=== PATIENT | female | born 1985 | race Caucasian/White ===

== ENCOUNTER 2019-10-12 01:55 | Inpatient (IN) | payer BC, OTHER, SELFPAY ==
[2019-10-12] VITALS (92 sets, daily range): BP systolic 87–121; BP diastolic 38–88; PULSE 65–179; RESP 16; TEMP 36.3–37; O2SAT 87–100; BMI 28.5
[2019-10-12] MEDS: LACTATED RINGERS 1,000 ML 125 ML IV CONT ×2 (02:48→03:36)
[2019-10-12 02:52] LABS: Basophils Absolute Auto 0.1 K/mm3 (0.0-0.1); Basophils Percent Auto 0.5 % (0.2-1.2); Eosinophils Absolute Auto 0.1 K/mm3 (0-0.3); Eosinophils Percent Auto 0.9 % (0-4.4); Hematocrit 32.7 % (37.0-47.0); Hemoglobin 11.3 g/dL (12.0-15.0); Immature Granulocyte Absolute 0.06 K/mm3 (0.00-0.031); Immature Granulocyte Percent A 0.6 % (0-0.5); Lymphocytes Absolute Auto 1.98 K/mm3 (0.9-3.2); Lymphocytes Percent Auto 19.2 % (18.3-44.2); Mean Corpuscular HGB Conc 34.6 g/dl (32-36); Mean Corpuscular Volume 92.6 fl (80-100); Mean Platelet Volume 9.8 fl (7.4-10.4); Monocytes Absolute Auto 0.7 K/mm3 (0.1-0.6); Monocytes Percent Auto 7.2 % (2.6-8.5); Neutrophils Absolute Auto 7.4 K/mm3 (1.3-6.7); Neutrophils Percent Auto 71.6 % (45.5-73.1); Platelet Count Result 255 k/mm3 (150-375); Red Blood Count 3.53 M/mm3 (4.2-5.4); Red Cell Distribution Width 12.5 % (11.5-14.5); White Blood Count 10.3 K/mm3 (4.5-10.0)
[2019-10-12] MEDS: AMPICILLIN 2 GM/NS 100 ML 2 GM/100 ML BAG IVPB (02:56)
--- NOTE | 2019-10-12 03:22 | P.PNAN_ITS ---
Anes - Eval Pre Procedure Procedure: labor epidural Date/Time: 10/12/19 03:22 Surgeon: Jones Preop Diagnosis: Pain in labor Pre Op Diagnosis: LEAKING Patient Data Age: 33 Gender: F Height: 1.63 m Weight: 75.5 kg Last Vital Signs Pulse 75 10/12/19 03:20 BP 107/63 10/12/19 03:20 Pulse Ox 100 10/12/19 03:21 Allergies Allergy/AdvReac Type Severity Reaction Status Date / Time morphine AdvReac Mild vomiting Verified 09/01/19 10:59 Home Medications Medication Instructions Recorded Confirmed Type PNV cmb#95-ferrous fumarate-FA 1 tablet PO DAILY 09/01/19 09/01/19 History [] diphenhydramine HCl [Benadryl] 25 mg PO HS PRN 09/01/19 09/01/19 History Laboratory Tests 10/12/19 10/12/19 02:42 02:42 WBC 10.3 K/mm3 H K/mm3 (4.5-10.0) RBC 3.53 M/mm3 L M/mm3 (4.2-5.4) Hgb 11.3 g/dL L g/dL (12.0-15.0) Hct 32.7 % L % (37.0-47.0) MCV 92.6 fl fl (80-100) MCH 32.0 pg pg (26-34) MCHC 34.6 g/dl g/dl (32-36) RDW 12.5 % % (11.5-14.5) Plt Count 255 k/mm3 k/mm3 (150-375) MPV 9.8 fl fl (7.4-10.4) Immature Gran % (Auto) 0.6 % H % (0-0.5) Neut % (Auto) 71.6 % % (45.5-73.1) Lymph % (Auto) 19.2 % % (18.3-44.2) [place] % (Auto) 7.2 % % (2.6-8.5) Eos % (Auto) 0.9 % % (0-4.4) Baso % (Auto) 0.5 % % (0.2-1.2) Lymph # (Auto) 1.98 K/mm3 K/mm3 (0.9-3.2) [place] # (Auto) 0.7 K/mm3 H K/mm3 (0.1-0.6) Eos # (Auto) 0.1 K/mm3 K/mm3 (0-0.3) Baso # (Auto) 0.1 K/mm3 K/mm3 (0.0-0.1) Abs Immat Gran (auto) 0.06 K/mm3 H K/mm3 (0.00-0.031) Absolute Neuts (auto) 7.4 K/mm3 H K/mm3 (1.3-6.7) Absolute Nucleated RBC 0.0 K/mm3 K/mm3 (0.0-0.012) Nucleated RBC % 0.0 % % (0.0-0.2) RPR Pending Patient hx anesthesia problems: none Family hx anesthesia problems: none [facility] Past Medical History Medical History (Updated 10/12/19 @ 03:23 by Anastacio Coates, ) Fixation hardware in spine cervical C4-6 and thoracic T6-12 Exam Day of Procedure 10/12/19 03:22 Patient weight: overweight
--- NOTE | 2019-10-12 03:38 | LDADM ---
This patient, Chauncey Desai, was admitted to Labor/Delivery/Recovery 108 on 10/12/19 at 01:55. Plans for labor, pain management and were discussed with patient. Patient/family oriented to hospital policies and general routines including ID bracelet, bed and alarms, visiting hours, pain management, procedures, bathroom and other care routines, personal items, smoking policy, room service/diet and guest tray routines, infant security routines, and visiting hours. Patient/Family are encouraged to report perceived risks to care and to ask questions if they do not understand what they are told or what they should do. See OBIX for further documentation.
[2019-10-12] MEDS: AMPICILLIN 1 GM/NS 50 ML 1 GM/50 ML BAG IVPB (06:31)
--- NOTE | 2019-10-12 06:37 | PM.IMHP ---
H&P: HPI History of Present Illness Chief complaint: LEAKING Narrative: Chauncey Desai is a 33 year old female 012 whose last menstrual period was 01/26/2019 whose EDC is 11/09/2019 presents at 36 weeks gestation with leaking fluid. Her has been uncomplicated her group B strep screen is pending. Antibiotics have been began Review of Systems Review of Systems: All systems reviewed & are unremarkable except as noted in HPI and below PMFSH Past Medical History Medical History Fixation hardware in spine cervical C4-6 and thoracic T6-12 Social History Social History Smoking status: Never smoker Substance use: never Gender identity (if verbalized by the patient): Female Spiritual care concerns: No Meds Home Medications and Allergies Home Medications Medication Instructions Recorded Confirmed Type PNV cmb#95-ferrous fumarate-FA 1 tablet PO DAILY 09/01/19 10/12/19 History [] diphenhydramine HCl [Benadryl] 25 mg PO HS PRN 09/01/19 10/12/19 History Allergies Allergy/AdvReac Type Severity Reaction Status Date / Time morphine AdvReac Mild vomiting Verified 09/01/19 10:59 Vital Signs Vital Signs - 24 hr 10/12/19 02:30 10/12/19 03:06 10/12/19 03:08 Temperature Pulse Rate 85 78 87 Blood Pressure 99/70 L 109/60 107/71 Pulse Oximetry 99 10/12/19 03:10 10/12/19 03:11 10/12/19 03:12 Temperature Pulse Rate 82 80 Blood Pressure 100/76 105/70 Pulse Oximetry 100 10/12/19 03:15 10/12/19 03:16 10/12/19 03:17 Temperature Pulse Rate 72 71 Blood Pressure 111/68 107/66 Pulse Oximetry 100 10/12/19 03:18 10/12/19 03:20 10/12/19 03:21 Temperature Pulse Rate 78 75 Blood Pressure 104/64 107/63 Pulse Oximetry 100 10/12/19 03:22 10/12/19 03:25 10/12/19 03:26 Temperature Pulse Rate 69 72 Blood Pressure 104/62 104/60 Pulse Oximetry 100 10/12/19 03:27 10/12/19 03:30 10/12/19 03:31 Temperature Pulse Rate 68 72 Blood Pressure 106/61 111/56 L Pulse Oximetry 100 10/12/19 03:32 10/12/19 03:35 10/12/19 03:36 Temperature Pulse Rate 73 Blood Pressure 106/67 87/64 L Pulse Oximetry 100 10/12/19 03:37 10/12/19 03:40 10/12/19 03:41 Temperature Pulse Rate 179 H 70 Blood Pressure 91/38 L 93/48 L Pulse Oximetry 100 10/12/19 03:42 10/12/19 03:45 10/12/19 03:46 Temperature Pulse Rate 70 66 Blood Pressure 90/50 L 99/52 L Pulse Oximetry 100 10/12/19 03:47 10/12/19 03:50 10/12/19 03:51 Temperature Pulse Rate 74 156 H Blood Pressure 106/67 101/62 Pulse Oximetry 100 10/12/19 03:52 10/12/19 03:55 10/12/19 03:56 Temperature Pulse Rate 71 65 Blood Pressure 100/58 L 104/60 Pulse Oximetry 100 10/12/19 03:57 10/12/19 04:00 10/12/19 04:01 Temperature Pulse Rate 65 69 Blood Pressure 100/59 L 102/63 Pulse Oximetry 100 10/12/19 04:05 10/12/19 04:06 10/12/19 04:11 Temperature 97.4 F L Pulse Rate Blood Pressure Pulse Oximetry 100 100 10/12/19 04:15 10/12/19 04:16 10/12/19 04:21 Temperature Pulse Rate 72 Blood Pressure 99/66 L Pulse Oximetry 100 100 10/12/19 04:26 10/12/19 04:30 10/12/19 04:31 Temperature Pulse Rate 70 Blood Pressure 103/66 Pulse Oximetry 99 100 10/12/19 04:36 10/12/19 04:41 10/12/19 04:45 Temperature Pulse Rate 75 Blood Pressure 104/69 Pulse Oximetry 100 100 10/12/19 04:46 10/12/19 04:51 10/12/19 04:56 Temperature Pulse Rate Blood Pressure Pulse Oximetry 100 100 100 10/12/19 05:00 10/12/19 05:01 10/12/19 05:06 Temperature Pulse Rate 79 Blood Pressure 97/64 L Pulse Oximetry 100 100 10/12/19 05:11 10/12/19 05:16 10/12/19 05:21 Temperature Pulse Rate 74 Blood Pressure 87/48 L Pulse Oximetry 100 100 100 10/12/19 05:26 10/12/19
--- NOTE | 2019-10-12 07:18 | PM.OBPRVD ---
OB - Delivery Note Procedure Delivery date: 10/12/19 Intrapartal events: None Induction method: none Delivery monitor: external FHT Route of delivery: Episiotomy description: None Laceration description: None Specimen: No Estimated blood loss (mL): 57 Anesthesia type: Epidural Disposition: floor Baby Date of : 10/12/19 Time of : 07:09 Weeks of gestation at delivery: 36 gender: Male presentation: vertex position: Right Occiput Anterior Placenta delivery description: Spontaneous cord vessel description: 3 Vessels score one minute: 9 score five minutes: 9 Narrative: amp x 2
[2019-10-12 09:00] LABS: Rapid Plasma Reagin Non-Reactive (NonReactive)
[2019-10-12] MEDS: WITCH HAZEL 40 PADS 1 PAD TOPICAL (09:51)
[2019-10-12] MEDS: BENZOCAINE 20% AER SPR (*SP) 56 GM CAN 1 SPRAY TOPICAL (09:51)
--- NOTE | 2019-10-12 11:38 | PC.NURSE ---
Patient transferred to post room #282 via wheelchair. Support person present. Oriented to unit, room, information board, rooming in, admission packet and security measures. Patient verbalizes understanding.
--- NOTE | 2019-10-12 11:40 | PC.NURSE ---
Consult with pt., mother reports she did not breastfeed first children (twins delivered at 29 weeks) Reviewed feeding cues, frequencies, duration of feedings, feeding elimination flow sheet, and signs of adequate intake. Demonstrated stimulation techniques to wake infant for feeding. Assisted with to breast. Reviewed positioning/alignment in cross cradle, holding breast in U hold and guided asymmetrical latch on. Discussed rational for each. With in a few attempts, infant was able to latch correctly. nursed eagerly, with steady draws and frequent swallowing noted. Reviewed signs of a correct latch, effective nursing and suck swallow ratio. Infant was able to maintain latch without discomfort to mother. Nipple care reviewed. Suggested to hold breast during entire feeding to assist with maintaining deep latch, and to stimulate to keep awake and interested in feeding. Instructed mother to call out for RN assistance if she is unable to latch infant for feeding or she has discomfort with nursing. Instructed feeding should be initiated three hours from start of last feeding or if feeding cues are noted before. Mother voiced understanding of information shared.
[2019-10-12] MEDS: IBUPROFEN 600 MG TABLET PO ×3 (11:54→23:21)
--- NOTE | 2019-10-12 14:15 | PC.NURSE ---
Mother called out for assist with latching. Demonstrated stimulation techniques to wake for feeding. Assisted with infant to breast. Reviewed positioning/alignment in cross cradle, holding breast in U hold and guided asymmetrical latch on. Discussed rational for each. With in a few attempts, infant was able to latch correctly. nursed eagerly, with steady draws and frequent swallowing noted. Reviewed signs of a correct latch, effective nursing and suck swallow ratio. Infant was able to maintain latch without discomfort to mother. Nipple care reviewed. Suggested to hold breast during entire feeding to assist with maintaining deep latch, and to stimulate to keep awake and interested in feeding. Instructed mother to call out for RN assistance if she is unable to latch infant for feeding or she has discomfort with nursing. Instructed feeding should be initiated three hours from start of last feeding or if feeding cues are noted before. Mother voiced understanding of information shared.
[2019-10-13 05:25] LABS: Hematocrit 33.2 % (37.0-47.0)
[2019-10-13] MEDS: IBUPROFEN 600 MG TABLET PO ×3 (05:25→19:33)
--- NOTE | 2019-10-13 07:53 | PM.OBPNVD ---
OB - PN: Subj Subjective Date/time seen: 10/13/19 07:53 Patient comments: no complaints, pain well controlled and tolerating diet feeding status: exclusively breast feeding Narrative: patient doing well this AM. No complaints. Pain is well controlled. She reports minimal bleeding. She is ambulating and voiding without difficulty. She is tolerating PO. She denies N/V, fever, chills. OB - PN: Obj Data Labs CBC & Chem 7: 10/13/19 05:14 Labs: Laboratory Results - last 24 hr 10/12/19 10/12/19 10/13/19 02:42 02:42 05:14 Hgb Hct RPR Non-reactive Blood Type O Negative Antibody Screen Positive Antibody Identification Passive Due to RH Imm Glob Passive Due to RH Imm Glob Antigen Identification Cancelled Cancelled ANDREA, IgG Interpret Not Performed Not Performed ANDREA, Poly Interpret Negative Negative ANDREA, Complement Interp Not Performed Not Performed Screen Negative Baby's Blood Type A pos Baby's ANDREA Negative Doses of RhIg Required 1 10/13/19 05:14 Hgb 11.0 L Hct 33.2 L RPR Blood Type Antibody Screen Antibody Identification Antigen Identification ANDREA, IgG Interpret ANDREA, Poly Interpret ANDREA, Complement Interp Screen Baby's Blood Type Baby's ANDREA Doses of RhIg Required OB - PN A/P Plan day: 1 Plan: routine care Comments: patient doing well H/H stable plan for infant circumcision today continue routine care Time Spent With Patient Time: Total time spent is greater than 50% in coordination of care (as documented) at patient's floor/unit and/or counseling patient: Time with patient: less than 15 minutes Review of Systems Review of Systems: All systems reviewed & are unremarkable except as noted in HPI and below Exam Const: General: comfortable and no acute distress Resp: Effort & Inspection: normal respiratory effort Cardio: Rate: regular rate GI: GI Palp: Yes Soft to palpation and No Tenderness to palpation present (GI) Auscultation: normal bowel sounds Other: fundus firm and below umbilicus. Psych: Affect: normal affect
--- NOTE | 2019-10-13 08:30 | WPDANLDPN2 ---
Anes-Prog Note L&D Date/Time: 10/13/19 08:30 Comfortable throughout: labor and delivery Neuraxial method: epidural Epidural/Spinal procedure site: clean & non-tender Neuro status: Neuro function grossly intact. Cardiovascular status: normal Respiratory status: normal Airway patency: baseline Mental status: baseline Post-Op hydration status: normal Vital Signs: Last Vital Signs Temp 36.7 C 10/12/19 19:30 Pulse 88 10/12/19 19:30 Resp 16 10/12/19 19:30 BP 115/73 10/12/19 19:30 Pulse Ox 98 10/12/19 10:40 Patient feedback: Patient satisfied with anesthetic care.
[2019-10-13 08:50] VITALS: BP 104/70; PULSE 72; RESP 18; TEMP 36.5; O2SAT 99
[2019-10-13] MEDS: MULTIVIT/MIN/PREN/FOL AC/IRON TABLET 1 TAB PO (08:56)
[2019-10-13] MEDS: RHO(D) IMMUNE GLOBULIN 300 MCG SYRINGE IM (09:56)
--- NOTE | 2019-10-13 12:50 | PC.NURSE ---
Observed mother is able to independently latch with appropriate positioning/alignment. She denies any nipple discomfort, is feeding as required and waking infant to feed if needed. nursed eagerly, with steady draws and frequent swallowing noted. Reviewed signs of a correct latch, effective nursing and suck swallow ratio. was able to maintain latch without discomfort to mother. Reviewed output and jaundice level. Mother will initiate 15ml supplementation after each .
[2019-10-13 19:35] VITALS: BP 113/73; PULSE 73; RESP 16; TEMP 36.6
[2019-10-14] MEDS: IBUPROFEN 600 MG TABLET PO (05:14)
--- NOTE | 2019-10-14 07:53 | PM.OBDSVD ---
OB - DS: Summary OB Procedures : None OB Procedures Intrapartum: Spontaneous Vag Delivery OB Procedures: : None Status at Discharge Functional status at discharge: independent ambulation Overall status at discharge: patient is back to baseline Time Spent with Patient Time attestation: Total time spent providing and/or coordinating discharge services: Time spent: Less than 30 minutes Exam Const: General: comfortable and no acute distress Resp: Effort & Inspection: normal respiratory effort Auscultation: clear to auscultation bilaterally Cardio: Rate: regular rate GI: GI Palp: Yes Soft to palpation Auscultation: normal bowel sounds Other: Fundus firm below umbilicus Psych: Appearance: grossly normal Mental Status: mental status grossly normal Affect: normal affect DS: Data Data Completed and Pending Labs on day of discharge: Labs from last 24 hours 10/13/19 05:14 Blood Type O Negative Antibody Screen Positive Antibody Identification Passive Due to RH Imm Glob Antigen Identification Cancelled ANDREA, Poly Interpret Negative Screen Negative Baby's Blood Type A pos Baby's ANDREA Negative Doses of RhIg Required 1 Discharge Plan Discharge Discharging Clinician: Marcus Bustos Patient Disposition: Home, Self-Care Activity: pelvic rest Diet: regular Discharge Instructions: Call or return for temperature >100.4, bleeding >2 pads/hr, pain not controlled by medications, signs/symptoms of mastitis Patient Instructions: Antibiotic Form Stand Alone Forms: General Discharge Information Follow-up/Referrals: Mikal Sullivan MD [Physician] - 4 Weeks Discharge Medications: New Dermoplast (with menthol) 20-0.5 % Aerosol 1 spray topical PRN PRN (Reason: Perineal Discomfort) Qty: 1 RF: 0 ibuprofen 600 mg Tablet 600 mg PO Q6H PRN (Reason: Cramping) Qty: 30 RF: 0 acetaminophen [Mapap (acetaminophen)] 325 mg Tablet 650 mg PO Q6H PRN (Reason: Mild Pain (1-3) Or Headache) Qty: 30 RF: 0 Een-K-Imorzj Cream 1 applic topical PRN PRN (Reason: Sore Nipples) Qty: 1 RF: 0 Continued diphenhydramine HCl [Benadryl] 25 mg Capsule 25 mg PO HS PRN (Reason: Sleep) RF: 0 PNV cmb#95-ferrous fumarate-FA [] 28 mg iron- 800 mcg Tablet 1 tablet PO DAILY RF: 0 Date of admission: 10/12/19 01:55 Primary Care Provider: Steve,Kika Luna Admitting Provider: Mikal Sullivan Attending physician on admission: Mikal Sullivan
[2019-10-14 08:10] VITALS: BP 116/80; PULSE 71; RESP 16; TEMP 36.8; O2SAT 99
[2019-10-14] MEDS: MULTIVIT/MIN/PREN/FOL AC/IRON TABLET 1 TAB PO (09:31)
[2019-10-14] MEDS: MEASLES,MUMPS,RUBELLA VACCINE 0.5 ML VIAL (09:31)
--- NOTE | 2019-10-14 11:25 | PC.NURSE ---
Patient viewed the discharge video Mother & Baby Care, The First Two Weeks . Patient was given the opportunity and encouraged to ask questions. Patient verbalized understanding of information shared and has been given the mother/baby guide for home reference.
[2019-10-15 09:20] VITALS: BP 106/73; PULSE 63; RESP 18; TEMP 36.8
== END 2019-10-14 14:20 | disposition home or self-care (01) | DRG 807 ==
LOC: ANHLDR 02:42 → ANHOB2 10-14 07:54 → ANHLDR 10-17 11:53 → ANHOB2 10-17 11:53
PROVIDERS: Admitting Provider Obstetrics & Gynecology; PCP Family Medicine; Visit Provider Student in an Organized Health Care Education/Training Program
DX: O60.14X0 Preterm labor third trimester with preterm delivery third trimester, not applicable or unspecified (principal); Z37.0 Single live birth; Z3A.36 36 weeks gestation of pregnancy; O34.211 Maternal care for low transverse scar from previous cesarean delivery
CPT/HCPCS: 36415; 85014; 85018; 85025; 86592; 86850; 86880; 86900; 86901; 86902; 90384; 90710; A9270; J0290; J2590; J2790; J2795; J3010; J7120

== ENCOUNTER 2022-08-16 07:41 | Observation (INO) | payer BC, SELFPAY ==
--- NOTE | 2022-08-16 07:41 | OBADM ---
This patient, Chauncey Desai, admitted to the OB room OB Post 116 for observation. Patient/family oriented to hospital policies and general routines including ID bracelet, bed and alarms, visiting hours, pain management, procedures, bathroom and other care routines, personal items, smoking policy, room service/diet, and visiting hours. Patient/Family are encouraged to report perceived risks to care and to ask questions if they do not understand what they are told or what they should do.
--- NOTE | 2022-08-16 08:05 | PC.NURSE ---
pt presents with lower left abdominal cramping. Pt states that it has become more constant since 0430 this morning. Pt has no spotting, no bleeding, no diarrhea and no vomiting. Pt reports no complications thus far and did have her 20 week ultrasound this past week which pt stated revealed a larger placenta with 2 lobe close to her cervix. Pt reported having previous ultrasound around 8-9 weeks for lower back pain that did not show anything according to the pt.
[2022-08-16 08:09] VITALS: BP 98/61; PULSE 77
[2022-08-16 09:16] LABS: Add Urine Microscopic? NO; Appearance Urine Clear (Clear); Bilirubin Urine Negative (Negative); Blood Urine Negative (Negative); Color Urine Light Yellow (Yellow); Glucose Urine UA Negative (Negative); Ketones Urine Negative (Negative); Leukocyte Esterase Ur Negative LEU/UL (Negative); Nitrate Urine Negative (Negative); Protein Urine Negative (Negative); Specific Grav Ur <= 1.005 (1.001-1.035); Urobilinogen Urine 0.2 mg/dL (<2.0); pH Urine 6.5 (5.0-9.0)
--- NOTE | 2022-08-16 09:20 | PC.NURSE ---
Addendum entered by Lety Rodriguez RN 08/16/22 10:39: Order received to take pt off of monitors. heart tones reported to MD. Unable to do continuous tracing due to pt discomfort. Original Note: Urine results called to Dr. Ibarra. MD will be coming in and will preform bedside ultrasound once he arrives.
--- NOTE | 2022-08-16 11:14 | PC.NURSE ---
Dr. Ibarra at the bedside preforming a bedside ultrasound. MD suggest physical therapy to help with her discomfort. Discharge order received.
--- NOTE | 2022-08-16 11:21 | WPDOBADMIT ---
Obstetrics - Admit Note Admission Note: 36 y/o multiparous patient at 20 weeks with LLQ pain throughout the , worsening this morning. No vaginal bleeding. No urinary symptoms. Good movement. She says she was told she had a succenturiate lobe of her low lying placenta last week in our office. Last bm yesterday, normal. AVSS NST +fhr BACK: no CVA tend ABD soft, nontender, gravid. She indicates the pain to be in the left inguinal region. No hernia palpated. No guard, no rebound. Pain actually relieved with pressure on the area. EXT nontender UA: neg. Bedside ultrasound by me: enrique IUP in cephalic presentation. Posterior, low-lying placenta vs. previa. Normal-appearing AFV. Good movement. A: Musculoskeletal pain in midtrimester of . P: Tylenol PRN. f/u office as scheduled. We may consider physical therapy.
--- NOTE | 2022-08-30 09:59 | PM.OBTRLD ---
OB - Triage/Final Diagnosis Visit Information Comments/Additional reasons for admission: I have assessed the risk for this patient, Chauncey Desai, and determined that she would benefit from observation care. Evaluation Laboratory results: Laboratory Tests 08/16/22 08:19 Urine Color Light yellow Urine Appearance Clear Urine pH 6.5 Ur Specific [place] <= 1.005 Urine Protein Negative Urine Glucose (UA) Negative Urine Ketones Negative Ur Blood (Man) Negative Urine Nitrate Negative Urine Bilirubin Negative Urine Urobilinogen 0.2 Leukocyte Esterase Rfl Negative Final Diagnosis (1) Cramping affecting , antepartum: Code(s): O26.899 - Other specified related conditions, unspecified trimester; R10.9 - Unspecified abdominal pain Status: Acute
== END 2022-08-16 11:34 | disposition home or self-care (01) ==
PROVIDERS: Admitting Provider Obstetrics & Gynecology; PCP Family Medicine; Visit Provider Obstetrics & Gynecology
DX: O26.892 Other specified pregnancy related conditions, second trimester (principal); R10.30 Lower abdominal pain, unspecified; Z3A.20 20 weeks gestation of pregnancy
CPT/HCPCS: 81003; G0378; G0379

== ENCOUNTER 2022-10-06 11:05 | Outpatient (RCR) | payer BC, SELFPAY ==
[2022-10-09] MEDS: RHO(D) IMMUNE GLOBULIN 300 MCG/2 ML SYRINGE IM (10:17)
== END 2023-01-04 23:59 | disposition home or self-care (01) ==
LOC: ANHLAB 11:05
PROVIDERS: PCP Family Medicine; Visit Provider Obstetrics & Gynecology
DX: Z29.13 Encounter for prophylactic Rho(D) immune globulin (principal); O36.0190 Maternal care for anti-D [Rh] antibodies, unspecified trimester, not applicable or unspecified; Z3A.00 Weeks of gestation of pregnancy not specified
CPT/HCPCS: 36415; 85461; 86850; 86900; 86901; 90384; 96372; J2790

== ENCOUNTER 2022-12-07 23:45 | Observation (INO) | payer BC, SELFPAY ==
[2022-12-07 23:46] VITALS: BP 92/60; PULSE 89
[2022-12-08 00:01] VITALS: BP 85/48; PULSE 80
[2022-12-08 00:16] VITALS: BP 102/64; PULSE 80
[2022-12-08 00:28] LABS: Appearance Urine Clear (Clear); Bilirubin Urine Negative (Negative); Blood Urine Negative (Negative); Color Urine Yellow (Yellow); Glucose Urine UA Negative (Negative); Ketones Urine Negative (Negative); Leukocyte Esterase Ur Negative LEU/UL (Negative); Nitrate Urine Negative (Negative); Protein Urine Negative (Negative); Specific Grav Ur 1.014 (1.001-1.035)
[2022-12-08 00:31] VITALS: BP 106/64; PULSE 89
[2022-12-08 00:46] VITALS: BP 110/71; PULSE 82
[2022-12-08 00:54] LABS: Add Urine Microscopic? NO
[2022-12-08 01:01] VITALS: BP 101/69; PULSE 88
[2022-12-08 01:22] VITALS: BMI 29.5
--- NOTE | 2022-12-08 01:23 | OBADM ---
This patient, Chauncey Desai, admitted to the OB room Labor/Delivery/Recovery 102 for observation. Patient/family oriented to hospital policies and general routines including ID bracelet, bed and alarms, visiting hours, pain management, procedures, bathroom and other care routines, personal items, smoking policy, room service/diet, and visiting hours. Patient/Family are encouraged to report perceived risks to care and to ask questions if they do not understand what they are told or what they should do.
--- NOTE | 2022-12-10 06:09 | P.PNOB_ITS ---
OB - Triage/Final Diagnosis Visit Information Reason for evaluation: threatened labor Comments/Additional reasons for admission: I have assessed the risk for this patient, Chauncey Desai, and determined that she would benefit from observation care. Evaluation Laboratory results: Laboratory Tests 12/07/22 23:57 Urine Color Yellow Urine Appearance Clear Urine pH 6.0 Ur Specific [place] 1.014 Urine Protein Negative Urine Glucose (UA) Negative Urine Ketones Negative Ur Blood (Man) Negative Urine Nitrate Negative Urine Bilirubin Negative Urine Urobilinogen 1.0 Leukocyte Esterase Rfl Negative
== END 2022-12-08 01:45 | disposition home or self-care (01) ==
PROVIDERS: Admitting Provider Obstetrics & Gynecology; PCP Family Medicine; Visit Provider Obstetrics & Gynecology
DX: O47.1 False labor at or after 37 completed weeks of gestation (principal); Z3A.37 37 weeks gestation of pregnancy
CPT/HCPCS: 81003; 84112; G0378; G0379

== ENCOUNTER 2022-12-15 14:17 | Inpatient (IN) | payer BC, SELFPAY ==
[2022-12-15] VITALS (137 sets, daily range): BP systolic 82–126; BP diastolic 43–100; PULSE 65–150; RESP 16; TEMP 36.2–36.4; O2SAT 95–100; BMI 29.9
--- NOTE | 2022-12-15 14:17 | LDADM ---
This patient, Chauncey Desai, was admitted to Labor/Delivery/Recovery 102 on 12/15/22 at 14:17. Plans for labor, pain management and were discussed with patient. Patient/family oriented to hospital policies and general routines including ID bracelet, bed and alarms, visiting hours, pain management, procedures, bathroom and other care routines, personal items, smoking policy, room service/diet and guest tray routines, infant security routines, and visiting hours. Patient/Family are encouraged to report perceived risks to care and to ask questions if they do not understand what they are told or what they should do. See OBIX for further documentation.
--- NOTE | 2022-12-15 14:52 | P.HP_ITS ---
H&P: HPI History of Present Illness Date/Time: 12/15/22 14:52 Chief Complaint: Rupture membranes at term Narrative: this is a 37-year-old 4 para 2011 whose last menstrual was 03/14/2022, EDC is 12/29/2022, presents at 38 weeks gestation in active labor. She has had 2 spontaneous vaginal deliveries with the delivery of the 2nd twin being a C- section also ectopic. She negative for group B strep in her has been uncomplicated. She is Rh negative and received RhoGAM at 28 weeks. Risks and benefits of were reviewed throughout the . [facility] Past Medical History Medical History (Updated 12/15/22 @ 14:54 by Mikal Rand MD) Fixation hardware in spine cervical C4-6 and thoracic T6-12 Social History Social History Smoking status: Never smoker Substance use: never Gender identity (if verbalized by the patient): Female Spiritual care concerns: No Meds Home Medications and Allergies Home Medications Medication Instructions Recorded Confirmed Type vit no.95-ferrous 1 tablet PO DAILY 09/01/19 12/02/22 History fumarate 28 mg-folic acid 800 mcg tablet () acetaminophen 325 mg tablet (Mapap 650 mg PO Q6H PRN Mild Pain (1-3) 10/14/19 08/16/22 Rx (acetaminophen)) Or Headache #30 tabs Allergies Allergy/AdvReac Type Severity Reaction Status Date / Time morphine AdvReac Mild vomiting Verified 09/01/19 10:59 Vital Signs Vital Signs - 24 hr 12/15/22 14:27 12/15/22 14:31 12/15/22 14:46 Pulse Rate 88 87 84 Blood Pressure 116/74 105/68 106/66 Exam Const: General: cooperative, healthy appearing, comfortable and well groomed Nutritional Appearance: average body habitus Orientation/consciousness: oriented to person, oriented to place and oriented to time HENMT: Head: normal to inspection Resp: Effort & Inspection: normal respiratory effort Cardio: Rate: regular rate Rhythm: regular rhythm Heart sounds: S1 adis l heart sound present and S2 normal heart sound present GI: Inspection: normal to inspection ( Gravid uterus) : External Female Exam: normal external appearance Speculum Exam - Vagina: normal appearance of the vagina Speculum Exam - Cervix: normal appearance of the cervix ( cervix . Abundant clear fluid seen. IUPC placed. FHTs reassuring) Assessment and Plan Assessment and plan (1) Term : Code(s): Z34.90 - Encounter for supervision of normal , unspecified, unspecified trimester Status: Acute (2) Spontaneous rupture of membranes: Status: Acute (3) Previous section: Code(s): Z98.891 - History of uterine scar from previous surgery Status: Acute Plan the patient will undergo trial labor after . Risks and benefits reviewed. Spontaneous vaginal delivery is expected
[2022-12-15] MEDS: LACTATED RINGERS 1,000 ML 125 ML IV CONT ×4 (15:12→19:31)
[2022-12-15 15:13] LABS: Basophils Absolute Auto 0.1 K/mm3 (0.0-0.1); Basophils Percent Auto 0.5 % (0.2-1.2); Eosinophils Absolute Auto 0.1 K/mm3 (0-0.3); Eosinophils Percent Auto 0.7 % (0-4.4); Hematocrit 30.4 % (37.0-47.0); Hemoglobin 10.5 g/dL (12.0-15.0); Immature Granulocyte Absolute 0.11 K/mm3 (0.00-0.031); Immature Granulocyte Percent A 1.2 % (0-0.5); Lymphocytes Percent Auto 18.5 % (18.3-44.2); Mean Corpuscular HGB Conc 34.5 g/dl (32-36); Mean Corpuscular Hemoglobin 31.6 pg (26-34); Mean Corpuscular Volume 91.6 fl (80-100); Mean Platelet Volume 9.6 fl (7.4-10.4); Monocytes Absolute Auto 0.7 K/mm3 (0.1-0.6); Monocytes Percent Auto 7.4 % (2.6-8.5); Neutrophils Absolute Auto 6.6 K/mm3 (1.3-6.7); Neutrophils Percent Auto 71.7 % (45.5-73.1); Platelet Count Result 295 k/mm3 (150-375); Red Blood Count 3.32 M/mm3 (4.2-5.4); Red Cell Distribution Width 12.4 % (11.5-14.5); White Blood Count 9.2 K/mm3 (4.5-10.0)
--- NOTE | 2022-12-15 15:39 | WPDANESEPP ---
Anes - Eval Pre Procedure Procedure: labor epidural Date/Time: 12/15/22 15:39 Surgeon: osman Preop Diagnosis: pain during labor Pre Op Diagnosis: Labor Patient Data Age: 37 Gender: F Height: 1.63 m Weight: 79.2 kg Last Vital Signs Temp 36.3 C L 12/15/22 15:28 Pulse 81 12/15/22 15:31 BP 110/62 12/15/22 15:31 O2 Del Method Room Air 12/15/22 15:14 Allergies Allergy/AdvReac Type Severity Reaction Status Date / Time morphine AdvReac Mild vomiting Verified 09/01/19 10:59 Home Medications Medication Instructions Recorded Confirmed Type vit no.95-ferrous 1 tablet PO DAILY 09/01/19 12/15/22 History fumarate 28 mg-folic acid 800 mcg tablet () acetaminophen 325 mg tablet (Mapap 650 mg PO Q6H PRN Mild Pain (1-3) 10/14/19 12/15/22 Rx (acetaminophen)) Or Headache #30 tabs Laboratory Tests 12/15/22 12/15/22 12/15/22 15:01 15:01 15:01 WBC 9.2 K/mm3 K/mm3 (4.5-10.0) RBC 3.32 M/mm3 L M/mm3 (4.2-5.4) Hgb 10.5 g/dL L g/dL (12.0-15.0) Hct 30.4 % L % (37.0-47.0) MCV 91.6 fl fl (80-100) MCH 31.6 pg pg (26-34) MCHC 34.5 g/dl g/dl (32-36) RDW 12.4 % % (11.5-14.5) Plt Count 295 k/mm3 k/mm3 (150-375) MPV 9.6 fl fl (7.4-10.4) Immature Gran % (Auto) 1.2 % H % (0-0.5) Neut % (Auto) 71.7 % % (45.5-73.1) Lymph % (Auto) 18.5 % % (18.3-44.2) [place] % (Auto) 7.4 % % (2.6-8.5) Eos % (Auto) 0.7 % % (0-4.4) Baso % (Auto) 0.5 % % (0.2-1.2) Lymph # (Auto) 1.70 K/mm3 K/mm3 (0.9-3.2) [place] # (Auto) 0.7 K/mm3 H K/mm3 (0.1-0.6) Eos # (Auto) 0.1 K/mm3 K/mm3 (0-0.3) Baso # (Auto) 0.1 K/mm3 K/mm3 (0.0-0.1) Abs Immat Gran (auto) 0.11 K/mm3 H K/mm3 (0.00-0.031) Absolute Neuts (auto) 6.6 K/mm3 K/mm3 (1.3-6.7) Absolute Nucleated RBC 0.0 K/mm3 K/mm3 (0.0-0.012) Nucleated RBC % 0.0 % % (0.0-0.2) RPR Pending Blood Type O Negative Antibody Screen Pending Patient hx anesthesia problems: none Family hx anesthesia problems: none Results Review: All pre-operative results and documents have been reviewed as part of the pre-operative evaluation. [facility] Past Medical History Medical History (Updated 12/15/22 @ 14:54 by Mikal Rand MD) Fixation hardware in spine cervical C4-6 and thoracic T6-12 Social History Social History Smoking status: Former smoker Second hand tobacco smoke exposure: No Substance use: never Lack of Transportation: No Lack of Food: Never True Current Housing: I Have Housing Concerned About Future Housing: No Difficulty Paying Gas/Electric Bills: No Difficulty Paying for Meds: No Currently Unemployed: No Education: Bachelor's Degree Difficulty w/ Childcare or Family Care: No Gender identity (if verbalized by the patient): Female Spiritual care concerns: No Exam Day of Procedure 12/15/22 15:39
[2022-12-15] MEDS: TERBUTALINE SULFATE 1 MG/ML VIAL 0.25 MG SUB-Q (17:14)
--- NOTE | 2022-12-15 18:17 | PM.OBPNLAB ---
Pain Control Date/time seen: 12/15/22 18:17 Pain control: tolerating well and epidural (poor pain cotrol) Pelvic Exam Dilation (cm): 5 Effacement (%): 90 station: -1 Amniotic membrane status: Leaking Contractions Monitor mode: Internal
[2022-12-15] MEDS: OXYTOCIN 30 UNITS/NS 500 ML 30 UNITS/500 ML BAG IV CONT (18:57)
[2022-12-15] MEDS: PHENYLEPHRINE 1,000 MCG/10 ML SYRINGE 100 MCG IV PUSH ×2 (19:05→19:13)
--- NOTE | 2022-12-15 23:06 | PM.OBPRVD ---
OB - Delivery Note Procedure Delivery date: 12/15/22 Events: Previous Delivery Induction method: None Delivery augmentation: Pitocin Delivery monitor: External FHT and Internal Uterine Route of delivery: Episiotomy description: None Laceration Description: Perineal - 1st Degree Delivery repair: vicryl Specimen: No Quantitative Blood Loss (ml): 60 Anesthesia type: Epidural Disposition: Floor [place] Baby Date of : 12/15/22 Time of : 22:47 Weeks of gestation at delivery: 38 presentation: vertex position: Right Occiput Anterior Placenta delivery description: Spontaneous Cord Vessel Description: 3 Vessels, Nuchal Cord (x 3) and Loose score one minute: 8 score five minutes: 9
[2022-12-15] MEDS: OXYTOCIN 30 UNITS/NS 500 ML 30 UNITS/500 ML BAG 125 UNITS IV CONT (23:31)
[2022-12-16] VITALS (11 sets, daily range): BP systolic 103–125; BP diastolic 60–82; PULSE 65–89; RESP 16–18; TEMP 36.7–37.2; O2SAT 98–100
[2022-12-16] MEDS: WITCH HAZEL 40 PADS 1 PAD TOPICAL (00:58)
[2022-12-16] MEDS: BENZOCAINE 20% AER SPR (*SP) 56 GM CAN 1 SPRAY TOPICAL (00:58)
[2022-12-16] MEDS: IBUPROFEN 600 MG TABLET PO ×3 (04:21→17:21)
[2022-12-16] MEDS: ACETAMINOPHEN 325 MG TABLET 650 MG PO ×3 (05:03→20:17)
[2022-12-16 05:06] LABS: Hematocrit 27.7 % (37.0-47.0); Hemoglobin 9.3 g/dL (12.0-15.0)
--- NOTE | 2022-12-16 06:24 | PM.DS ---
DS: Admitting Diagnosis Discharge Date 12/17/2022 Admitting Diagnosis term DS: Discharge Diagnosis Discharge Diagnosis (1) Previous section: Code(s): Z98.891 - History of uterine scar from previous surgery Status: Acute (2) Spontaneous rupture of membranes: Status: Acute (3) Term : Code(s): Z34.90 - Encounter for supervision of normal , unspecified, unspecified trimester Status: Acute DS: Summary Hospital Course Reason for hospitalization: active labor at term with previous section Hospital Course: patient underwent successful trial of labor after with successful vaginal after . Her hospital course unremarkable. She remained afebrile. She was up, voiding without difficulty, ambulating, eating regular diet, and generally without complaints. Time Spent with Patient Time attestation: Total time spent providing and/or coordinating discharge services: Exam Const: General: cooperative, healthy appearing, comfortable and well groomed Nutritional Appearance: average body habitus Orientation/consciousness: oriented to person, oriented to place and oriented to time HENMT: Head: normal to inspection Resp: Effort & Inspection: normal respiratory effort Cardio: Rate: regular rate Rhythm: regular rhythm Heart sounds: S1 normal heart sound present and S2 normal heart sound present GI: Inspection: normal to inspection ( Fundus firm below the umbilicus) DS: Data Data Completed and Pending Labs on day of discharge: Labs from last 24 hours 12/16/22 12/16/22 12/15/22 04:56 04:56 15:01 WBC RBC Hgb 9.3 L Hct 27.7 L MCV MCH MCHC RDW Plt Count MPV Immature Gran % (Auto) Neut % (Auto) Lymph % (Auto) [place] % (Auto) Eos % (Auto) Baso % (Auto) Lymph # (Auto) [place] # (Auto) Eos # (Auto) Baso # (Auto) Abs Immat Gran (auto) Absolute Neuts (auto) Absolute Nucleated RBC Nucleated RBC % RPR Blood Type O Negative O Negative Antibody Screen TNP Positive Antibody Identification Passive Due to RH Imm Glob Antigen Identification Cancelled ANDREA, IgG Interpret Not Performed ANDREA, Poly Interpret Negative ANDREA, Complement Interp Not Performed Screen Pending Baby's Blood Type A pos Baby's ANDREA Positive Doses of RhIg Required Pending 12/15/22 12/15/22 15:01 15:01 WBC 9.2 RBC 3.32 L Hgb 10.5 L Hct 30.4 L MCV 91.6 MCH 31.6 MCHC 34.5 RDW 12.4 Plt Count 295 MPV 9.6 Immature Gran % (Auto) 1.2 H Neut % (Auto) 71.7 Lymph % (Auto) 18.5 [place] % (Auto) 7.4 Eos % (Auto) 0.7 Baso % (Auto) 0.5 Lymph # (Auto) 1.70 [place] # (Auto) 0.7 H Eos # (Auto) 0.1 Baso # (Auto) 0.1 Abs Immat Gran (auto) 0.11 H Absolute Neuts (auto) 6.6 Absolute Nucleated RBC 0.0 Nucleated RBC % 0.0 RPR Pending Blood Type Antibody Screen Antibody Identification Antigen Identification ANDREA, IgG Interpret ANDREA, Poly Interpret ANDREA, Complement Interp Screen Baby's Blood Type Baby's ANDREA Doses of RhIg Required Discharge Plan Discharge Attending physician on discharge: Mikal Romero Discharging Clinician: Mkial Romero Patient Disposition: Home, Self-Care Activity: may shower, no straining and pelvic rest Diet: heart healthy Wound Care Instructions: follow printed instructions Patient Instructions: Antibiotic Form Stand Alone Forms: General Discharge Information Follow-up/Referrals: Mikal Romero MD [Physician] - Discharge Medications: No Action acetaminophen [Mapap (acetaminophen)] 325 mg Tablet 650 mg PO Q6H PRN (Reason: Mild Pain (1-3) Or Headache) Qty: 30 0RF PNV cmb#95-ferrous fumarate-FA [] 28 mg iron- 800 mcg Tablet 1 tablet PO DAILY Date of admission: 12/15/22 14:17 Primary Care
--- NOTE | 2022-12-16 06:27 | PM.OBPNVD ---
OB - PN: Subj Subjective Date/time seen: 12/16/22 06:27 Patient comments: no complaints and pain well controlled baby status: doing well and nursing well OB - PN: Obj Data Labs 12/16/22 04:56 Labs: Laboratory Results - last 24 hr 12/15/22 12/15/22 12/16/22 15:01 15:01 04:56 WBC 9.2 RBC 3.32 L Hgb 10.5 L 9.3 L Hct 30.4 L 27.7 L MCV 91.6 MCH 31.6 MCHC 34.5 RDW 12.4 Plt Count 295 MPV 9.6 Immature Gran % (Auto) 1.2 H Neut % (Auto) 71.7 Lymph % (Auto) 18.5 [place] % (Auto) 7.4 Eos % (Auto) 0.7 Baso % (Auto) 0.5 Lymph # (Auto) 1.70 [place] # (Auto) 0.7 H Eos # (Auto) 0.1 Baso # (Auto) 0.1 Abs Immat Gran (auto) 0.11 H Absolute Neuts (auto) 6.6 Absolute Nucleated RBC 0.0 Nucleated RBC % 0.0 Blood Type O Negative Antibody Screen Positive Antibody Identification Passive Due to RH Imm Glob Antigen Identification Cancelled ANDREA, IgG Interpret Not Performed ANDREA, Poly Interpret Negative ANDREA, Complement Interp Not Performed Baby's Blood Type Baby's ANDREA 12/16/22 04:56 WBC RBC Hgb Hct MCV MCH MCHC RDW Plt Count MPV Immature Gran % (Auto) Neut % (Auto) Lymph % (Auto) [place] % (Auto) Eos % (Auto) Baso % (Auto) Lymph # (Auto) [place] # (Auto) Eos # (Auto) Baso # (Auto) Abs Immat Gran (auto) Absolute Neuts (auto) Absolute Nucleated RBC Nucleated RBC % Blood Type O Negative Antibody Screen TNP Antibody Identification Antigen Identification ANDREA, IgG Interpret ANDREA, Poly Interpret ANDREA, Complement Interp Baby's Blood Type A pos Baby's ANDREA Positive OB - PN A/P Plan day: 1 Plan: routine care Time Spent With Patient Time: Total time spent is greater than 50% in coordination of care (as documented) at patient's floor/unit and/or counseling patient: Time with patient: less than 15 minutes Exam Const: General: cooperative, healthy appearing and comfortable Nutritional Appearance: average body habitus Orientation/consciousness: oriented to person, oriented to place and oriented to time HENMT: Head: normal to inspection Resp: Effort & Inspection: normal respiratory effort Cardio: Rate: regular rate Rhythm: regular rhythm Heart sounds: S1 normal heart sound present and S2 normal heart sound present GI: Inspection: normal to inspection ( fundus firm below the umbilicus)
[2022-12-16 08:32] LABS: Rapid Plasma Reagin Non-Reactive (NonReactive)
[2022-12-16] MEDS: MULTIVIT/MIN/PREN/FOL AC/IRON TABLET 1 TAB PO (09:08)
--- NOTE | 2022-12-16 09:34 | WPDANLDPN2 ---
Anes-Prog Note L&D Date/Time: 12/16/22 09:34 Neuro status: Neuro function grossly intact. Vital Signs: Last Vital Signs Temp 36.7 C 12/16/22 07:40 Pulse 65 12/16/22 07:40 Resp 16 12/16/22 07:40 BP 105/65 12/16/22 07:40 Pulse Ox 100 12/16/22 07:40 O2 Del Method Room Air 12/16/22 04:50 Pain score (VAS): 0 I/O: Intake & Output 12/15/22 12/16/22 12/16/22 23:59 07:59 15:59 Intake Total 2500 Output Total 383 Balance 2500 -383 Patient feedback: Patient satisfied with anesthetic care.
--- NOTE | 2022-12-16 09:39 | PC.NURSE ---
0918 Introductions were made, then consulted with patient to assess needs related to . Mother led the conversation with her?plans to feed?her , history and the?experience so far. Resources provided for inpatient and outpatient services with the feeding sheet, mom/baby guide and name written on the white board. Mother voiced understanding of information and will call if there is a request for assistance. Reported to the primary RN.
[2022-12-16] MEDS: RHO(D) IMMUNE GLOBULIN 300 MCG/2 ML SYRINGE IM (10:40)
[2022-12-16] MEDS: POLYSACCHARIDE IRON COMPLEX 150 MG CAPSULE PO ×2 (11:15→17:20)
[2022-12-16] MEDS: DOCUSATE SODIUM 100 MG CAPSULE PO ×2 (11:15→17:21)
[2022-12-17] MEDS: IBUPROFEN 600 MG TABLET PO (05:22)
--- NOTE | 2022-12-17 06:23 | PM.OBPNVD ---
OB - PN: Subj Subjective Date/time seen: 12/17/22 06:23 Patient comments: no complaints and pain well controlled baby status: doing well and nursing well OB - PN: Obj Data Labs 12/16/22 04:56 Labs: Laboratory Results - last 24 hr 12/15/22 12/16/22 15:01 04:56 RPR Non-reactive Blood Type O Negative Antibody Screen TNP Screen Negative Baby's Blood Type A pos Baby's ANDREA Positive Doses of RhIg Required 1 OB - PN A/P Plan day: 2 Plan: routine care, discharge home and follow up 6 weeks Time Spent With Patient Time: Total time spent is greater than 50% in coordination of care (as documented) at patient's floor/unit and/or counseling patient: Time with patient: less than 15 minutes Exam Const: General: cooperative, healthy appearing and comfortable Nutritional Appearance: average body habitus Orientation/consciousness: oriented to person, oriented to place and oriented to time HENMT: Head: normal to inspection Neck: Neck: normal visual inspection Resp: Effort & Inspection: normal respiratory effort Cardio: Rate: regular rate Rhythm: regular rhythm Heart sounds: S1 normal heart sound present and S2 normal heart sound present GI: Inspection: normal to inspection
[2022-12-17 07:55] VITALS: BP 105/66; PULSE 71; RESP 16; TEMP 36.8; O2SAT 98
--- NOTE | 2022-12-17 08:00 | PC.NURSE ---
PT introductions made and plan of care discussed per post , pain management, breast feeding, daily care activities and pending discharge to home. PT and spouse both recipients of such instructions and no barriers to learning identified at this time. PT received discharge instructions per one to one discussion, mom baby care guide and demonstrations. PT verbalized understanding of such care.
--- NOTE | 2022-12-17 10:21 | PC.NURSE ---
[id number] Purposefully rounded to assess needs. Multip mother and father are confident with their feeding plan. Mother verbalizes she is able to independently latch without any nipple discomfort and is responsively . Infant is currently meeting outcomes for weight, output, jaundice and feeding frequencies of 8-12 times in 24 hours. Mother declines any additional assistance/education at this time. Mother is encouraged to call for assistance if her infant doesn?t latch or there is discomfort with latching. Mother voiced understanding of information shared and the mom reminded of the mom/baby guide for an additional resource.
[2022-12-17 10:30] VITALS: PULSE 71; RESP 16; O2SAT 98
[2022-12-17] MEDS: MULTIVIT/MIN/PREN/FOL AC/IRON TABLET 1 TAB PO (10:47)
[2022-12-17] MEDS: LANOLIN (LANSINOH) 7.5 GM CREAM 1 APPLIC TOPICAL (10:47)
[2022-12-17] MEDS: POLYSACCHARIDE IRON COMPLEX 150 MG CAPSULE PO (10:47)
[2022-12-17] MEDS: ACETAMINOPHEN 325 MG TABLET 650 MG PO (10:48)
--- NOTE | 2022-12-17 11:15 | PC.NURSE ---
Patient was given the opportunity to view the discharge video Mother & Baby Care, The First Two Weeks and to ask questions. Patient declined viewing the video and has been given the mother/baby guide for home reference. PT received discharge instructions per protocol and verbalized understanding of such care.
--- NOTE | 2022-12-17 13:30 | PC.NURSE ---
PT discharged to home ambulatory accompanied by spouse and and taken to waiting car. Follow up appts confirmed
[2022-12-18 10:01] VITALS: BP 111/73; PULSE 78; RESP 20; TEMP 36.8; O2SAT 98
== END 2022-12-17 13:30 | disposition home or self-care (01) | DRG 807 ==
LOC: ANHLDR 14:27 → ANHOB2 12-16 02:01
PROVIDERS: Admitting Provider Obstetrics & Gynecology; PCP Family Medicine; Visit Provider Obstetrics & Gynecology
DX: O34.211 Maternal care for low transverse scar from previous cesarean delivery (principal); Z37.0 Single live birth; Z3A.38 38 weeks gestation of pregnancy; O69.81X0 Labor and delivery complicated by cord around neck, without compression, not applicable or unspecified; O70.0 First degree perineal laceration during delivery
CPT/HCPCS: 36415; 85014; 85018; 85025; 85461; 86592; 86850; 86880; 86900; 86901; 90384; A9270; J2370; J2590; J2790; J2795; J3105; J7120